=== PATIENT | male | born 1955 ===

== ENCOUNTER 2025-07-11 16:15 | Emergency (ER) | payer OTHER, MEDICARE | END 2025-07-11 20:15 | disposition EXP | LOC: LB.ED 16:15 | DX: T75.1XXA Unspecified effects of drowning and nonfatal submersion, initial encounter (principal); I25.10 Atherosclerotic heart disease of native coronary artery without angina pectoris; E78.00 Pure hypercholesterolemia, unspecified; I10 Essential (primary) hypertension; V92.1 Drowning and submersion due to being thrown overboard by motion of watercraft; Y93.89 Activity, other specified | CPT/HCPCS: 36680; 92950; 99285; 99285-25; A0425; A0429; J0168; J7030 ==